=== PATIENT | male | born 1970 | race Caucasian/White ===

== ENCOUNTER 2021-06-16 08:13 | Emergency (ER) | payer OTHER, SELFPAY ==
--- NOTE | 2021-06-16 08:18 | ED.SKABFB ---
HPI - Skin/Abscess/Foreign Bdy General Chief complaint: Skin/Abscess/Foreign Body Stated complaint: poison jay jay Time Seen by Provider: 06/16/21 08:18 Source: patient, family and RN notes reviewed History of Present Illness HPI narrative: Patient is a 50-year-old male who presents the urgent care with his with complaints of a rash to the abdomen and back. Patient states is been there for approximately 1 week and he has been using calamine spray to the area. Patient states he has anaphylaxis to Benadryl and therefore has not taken any antihistamines. Patient did help his do yard work last week and she got over her poison jay jay fairly quickly. Patient states that the area is painful. No other acute complaints. No acute distress noted. Patient aware of the plan of care. Some parts of this dictation were generated by voice recognition software and may contain typographical and/or grammatical inaccuracies. Related Data Home Medications Medication Instructions Recorded Confirmed albuterol sulfate 2 puff INHALATION QID PRN 06/16/21 06/16/21 montelukast 10 mg PO DAILY 06/16/21 06/16/21 Allergies Allergy/AdvReac Type Severity Reaction Status Date / Time aspirin Allergy Severe Anaphylaxis Verified 06/16/21 08:26 diphenhydramine Allergy Severe Anaphylaxis Verified 06/16/21 08:26 pseudoephedrine Allergy Severe Anaphylaxis Verified 06/16/21 08:26 Review of Systems Review of Systems: CONSTITUTIONAL: Denies fever, chills, or sweats. EYES: Denies visual changes, redness, or discharge. ENT: Denies rhinorrhea, congestion, sore throat, or otalgia. CARDIOVASCULAR: Denies chest pain, palpitations, or edema. RESPIRATORY: Denies cough or dyspnea. GASTROINTESTINAL: Denies abdominal pain, nausea, vomiting, or diarrhea. GENITOURINARY: Denies dysuria or hematuria. SKIN: Reports of a painful rash to the right abdomen and back MUSCULOSKELETAL: Denies back pain, joint pain, or myalgia. NEUROLOGIC: Denies headache, numbness, or weakness. All other systems reviewed are negative, except as documented in HPI. [facility] Family History Family History (Updated 07/06/14 @ 07:13 by DOCTOR UNKNOWN) Father Malignant neoplasm of prostate Family history of lung cancer Sibling Hypertension Social History Social History Smoking status: Never smoker Alcohol intake: current Comments At the time of my signature, I reviewed and agree with the nursing past medical, surgical, social, and family history. There is no relevant family history pertinent to the patient complaint. Exam Narrative: GENERAL: This is a well-nourished, well-developed patient, in no apparent distress. HEAD: normocephalic, atraumatic. EYES: PERRL. Sclera clear/white. Vision is grossly intact. EARS: External ears normal NOSE: External nose normal with no obvious nasal discharge, nares without redness, no rhinorrhea. THROAT: Mucous membranes moist NECK: Neck supple CARDIOVASCULAR: Regular rate and rhythm without murmurs, gallops, or rubs. RESPIRATORY: Clear to auscultation. Breath sounds equal bilaterally. No wheezes, rales, or rhonchi. SKIN: Diffuse right abdomen extending to the right thoracic, stopping in the midline, vesicular dermatitis (shingles) NEURO: awake, alert, and oriented to person, place and time. There were no obvious focal neurologic abnormalities. EXTREMITIES: No clubbing, cyanosis, or edema. Course Vital Signs Vital signs: Vital Signs Temperature 98.5 F 06/16/21 08:25 Pulse Rate 83 06/16/21 08:25 Respiratory Rate 18 06/16/21 08:25 Blood Pressure 186/82 H 06/16/21 08:25 Pulse Oximetry 100 06/16/21 08:25 Temperature 98.5 F 06/16/21 08:25 Pulse Rate 83 06/16/21 08:25 Respiratory Rate 18 06/16/21 08:25 Blood Pressure 186/82 H 06/16/21 08:25 Pulse Oximetry 100 06/16/21 08:25 Reviewed-patient is informed that they may have pre-hypertension or hypertension based on a blood pressure reading in the department. I recommen
[2021-06-16 08:25] VITALS: BP 186/82; PULSE 83; RESP 18; TEMP 36.9; O2SAT 100
== END 2021-06-16 08:36 | disposition home or self-care (01) ==
PROVIDERS: Emergency Provider Nurse Practitioner Family
DX: B02.9 Zoster without complications (principal); J45.909 Unspecified asthma, uncomplicated
CPT/HCPCS: 99203; G0463

== ENCOUNTER 2021-12-29 09:13 | Emergency (ER) | payer OTHER, SELFPAY ==
[2021-12-29 09:28] VITALS: BP 238/134; PULSE 92; RESP 16; TEMP 37.3; O2SAT 99
--- NOTE | 2021-12-29 09:38 | ED.EAR ---
HPI - Ear Problem General Chief complaint: Ear Stated complaint: ear inf Source: patient History of Present Illness HPI Narrative: PATIENT PRESENTS WITH RIGHT EAR PAIN. NO DRAINAGE FROM EAR. PATIENT ALSO REQUESTS A REFILL ON ALBUTERAL INHALER AND SINGULAIR. MD Complaint: ear pain Related Data Home Medications Medication Instructions Recorded Confirmed albuterol sulfate 2 puff INHALATION QID PRN 06/16/21 12/29/21 montelukast 10 mg PO DAILY 06/16/21 12/29/21 Allergies Allergy/AdvReac Type Severity Reaction Status Date / Time aspirin Allergy Severe Anaphylaxis Verified 12/29/21 09:40 diphenhydramine Allergy Severe Anaphylaxis Verified 12/29/21 09:40 pseudoephedrine Allergy Severe Anaphylaxis Verified 12/29/21 09:40 Review of Systems Review of Systems: CONSTITUTIONAL: Denies fever, chills, or sweats. EYES: Denies visual changes, redness, or discharge. ENT: Denies rhinorrhea, congestion, sore throat, or otalgia. CARDIOVASCULAR: Denies chest pain, palpitations, or edema. RESPIRATORY: Denies cough or dyspnea. GASTROINTESTINAL: Denies abdominal pain, nausea, vomiting, or diarrhea. GENITOURINARY: Denies dysuria or hematuria. SKIN: Denies rash or itching. MUSCULOSKELETAL: Denies back pain, joint pain, or myalgia. NEUROLOGIC: Denies headache, numbness, or weakness. PSYCHIATRIC: Denies anxiety or depression. [facility] Family History Family History (Updated 07/06/14 @ 07:13 by DOCTOR UNKNOWN) Father Malignant neoplasm of prostate Family history of lung cancer Sibling Hypertension Social History Social History Smoking status: Never smoker Alcohol intake: current Comments At time of signature, agree with nursing past medical, surgical, social and family history. There is no relevant family history pertinent to the presenting complaint Exam Narrative: GENERAL: Well-appearing, well-nourished, and in no acute distress. HEAD: Normocephalic, atraumatic. EYES: PERRLA and EOMI. ENT: Nares clear, no rhinorrhea or epistaxis. Mucous membranes moist. Right ear TM intact left ear mild amount of cerumen in canal pain with movement NECK: Supple. CHEST: Clear to auscultation. No respiratory distress. HEART: Regular rate and rhythm. No murmur heard. Normal peripheral pulses. ABDOMEN: Soft, nontender, nondistended, normal active bowel sounds. EXTREMITIES: Normal range of motion. No edema. SKIN: Warm, dry, no rash. NEURO: No focal deficits. Alert and oriented x3. Daniela Coma Scale Eye Opening: Spontaneous 4 [place] Coma Scale Motor: Obeys Commands 6 [place] Coma Scale Verbal: Oriented 5 [place] Coma Scale Total 15 HENMT: Ears: external ear abnormal (RIGHT) auricular tenderness and pain with movement of external ear Course Course Level of Care: Express Care Visit Vital Signs Vital signs: Vital Signs Temperature 37.3 C 12/29/21 09:28 Pulse Rate 92 12/29/21 09:28 Respiratory Rate 16 12/29/21 09:28 Blood Pressure 238/134 H 12/29/21 09:28 Pulse Oximetry 99 12/29/21 09:28 Temperature 37.3 C 12/29/21 09:28 Pulse Rate 92 12/29/21 09:28 Respiratory Rate 16 12/29/21 09:28 Blood Pressure 238/134 H 12/29/21 09:28 Pulse Oximetry 99 12/29/21 09:28 Addressed elevated BP today. Today's blood pressure higher than recommended range. Discussed importance of follow -up with PCP and possible terminal supervisor effects/cardiovascular events related to HTN. Currently patient denies headache, dizziness, vision changes, CP or shortness of breath. Patient states he has whitecoat syndrome and blood pressure is elevated when he is at a physician's office. Discussed elevated blood pressure with patient states that it is elevated like this at each doctor visit. Patient states he was on blood pressure medication sometime ago but it was discontinued because his blood pressure returned to normal limits. Discussed red flags and when to go to ER. Discussed with patient need to monitor blood pressure follow low sodium diet
[2021-12-29 10:05] VITALS: BP 231/130; PULSE 91
== END 2021-12-29 10:05 | disposition home or self-care (01) ==
PROVIDERS: Emergency Provider Nurse Practitioner Family
DX: H60.91 Unspecified otitis externa, right ear (principal); H61.22 Impacted cerumen, left ear; J45.909 Unspecified asthma, uncomplicated
CPT/HCPCS: 99213; G0463

== ENCOUNTER 2023-08-24 09:51 | Outpatient (CLI) | payer OTHER, SELFPAY ==
[2023-08-24 19:13] LABS: Basophils Absolute Auto 0.1 K/mm3 (0.0-0.1); Basophils Percent Auto 0.8 % (0.2-1.2); Eosinophils Absolute Auto 0.3 K/mm3 (0-0.3); Eosinophils Percent Auto 4.7 % (0-4.4); Hematocrit 52.7 % (42.0-52.0); Hemoglobin 17.7 g/dL (14.0-18.0); Immature Granulocyte Absolute 0.03 K/mm3 (0.00-0.031); Immature Granulocyte Percent A 0.5 % (0-0.5); Lymphocytes Absolute Auto 1.18 K/mm3 (0.9-3.2); Lymphocytes Percent Auto 19.2 % (18.3-44.2); Mean Corpuscular HGB Conc 33.6 g/dl (32-36); Mean Corpuscular Hemoglobin 31.9 pg (26-34); Mean Platelet Volume 11.7 fl (7.4-10.4); Monocytes Absolute Auto 0.5 K/mm3 (0.1-0.6); Monocytes Percent Auto 8.3 % (2.6-8.5); Neutrophils Absolute Auto 4.1 K/mm3 (1.3-6.7); Neutrophils Percent Auto 66.5 % (45.5-73.1); Platelet Count Result 236 k/mm3 (150-375); Red Blood Count 5.55 M/mm3 (4.6-6.20); Red Cell Distribution Width 13.8 % (11.5-14.5); White Blood Count 6.1 K/mm3 (4.5-10.0)
[2023-08-24 20:02] LABS: Alanine Aminotransferase 47 U/L (6-50); Albumin Level 4.4 g/dL (3.5-5.1); Alkaline Phosphatase 46 U/L (38-126); Anion Gap 9 mmol/L (8-16); Aspartate Amino Transferase 73 U/L (17-59); Blood Urea Nitrogen 28 mg/dL (9-20); Calcium 9.8 mg/dL (8.4-10.2); Carbon Dioxide 33 mmol/L (22-30); Chloride 96 mmol/L (98-107); Cholesterol 304 mg/dL (0-200); Estimated Glomerular Filt Rate 30; Glucose 91 mg/dL (65-110); HDL Direct 35 mg/dL; Potassium 3.3 mmol/L (3.4-5.0); Sodium 138 mmol/L (137-145); Triglycerides 120 mg/dL (<150)
[2023-08-24 20:11] LABS: Thyroid Stimulating Hormone Reflex 0.366 uIU/mL (0.465-4.68)
[2023-08-24 20:13] LABS: LDL Cholesterol Direct 215 mg/dL
[2023-08-24 21:17] LABS: Free T4 Free Thyroxine Reflex 0.96 ng/dL (0.78-2.19)
[2023-08-24 22:06] LABS: Total Triiodothyronine (T3) 1.29 NG/ML (0.97-1.69)
[2023-08-26 17:59] LABS: PSA, Free 0.93 ng/mL; PSA, Total 3.9 ng/mL (<=4.0); Percent Free Prostate Spec Ag 24 % (>25)
[2023-08-27 12:53] LABS: Testosterone Total 336 ng/dL (250-1100)
== END 2023-08-24 09:52 | disposition home or self-care (01) ==
LOC: ANHBWCLAB 09:53
PROVIDERS: PCP Nurse Practitioner Adult Health; Visit Provider Nurse Practitioner Adult Health
DX: Z12.5 Encounter for screening for malignant neoplasm of prostate (principal); F55.3 Abuse of steroids or hormones; I10 Essential (primary) hypertension
CPT/HCPCS: 36415; 80053; 80061; 84153; 84154; 84402; 84403; 84439; 84443; 84480; 85025

== ENCOUNTER 2025-02-27 07:43 | Outpatient (CLI) | payer OTHER, SELFPAY ==
[2025-02-27 19:35] LABS: Basophils Absolute Auto 0.1 K/mm3 (0.0-0.1); Basophils Percent Auto 0.9 % (0.2-1.2); Eosinophils Absolute Auto 0.2 K/mm3 (0-0.3); Eosinophils Percent Auto 3.9 % (0-4.4); Hematocrit 55.2 % (42.0-52.0); Hemoglobin 18.4 g/dL (14.0-18.0); Immature Granulocyte Absolute 0.04 K/mm3 (0.00-0.031); Immature Granulocyte Percent A 0.7 % (0-0.5); Lymphocytes Percent Auto 21.2 % (18.3-44.2); Mean Corpuscular HGB Conc 33.3 g/dl (32-36); Mean Corpuscular Hemoglobin 31.2 pg (26-34); Mean Corpuscular Volume 93.6 fl (80-100); Mean Platelet Volume 11.9 fl (7.4-10.4); Monocytes Absolute Auto 0.5 K/mm3 (0.1-0.6); Monocytes Percent Auto 9.2 % (2.6-8.5); Neutrophils Absolute Auto 3.6 K/mm3 (1.3-6.7); Neutrophils Percent Auto 64.1 % (45.5-73.1); Platelet Count Result 190 k/mm3 (150-375); Red Cell Distribution Width 14.6 % (11.5-14.5); White Blood Count 5.7 K/mm3 (4.5-10.0)
[2025-02-27 19:37] LABS: Alanine Aminotransferase 57 U/L (6-50); Albumin Level 4.3 g/dL (3.5-5.1); Alkaline Phosphatase 57 U/L (38-126); Anion Gap 9 mmol/L (4-12); Aspartate Amino Transferase 79 U/L (17-59); Bilirubin,Total 0.9 mg/dL (0.2-1.3); Blood Urea Nitrogen 27 mg/dL (9-20); Calcium 9.1 mg/dL (8.4-10.2); Carbon Dioxide 32 mmol/L (22-30); Chloride 97 mmol/L (98-107); Cholesterol 283 mg/dL (0-200); Estimated Glomerular Filt Rate 33; Glucose 88 mg/dL (65-110); HDL Direct 44 mg/dL; Potassium 3.4 mmol/L (3.4-5.0); Sodium 138 mmol/L (137-145); Triglycerides 136 mg/dL (<150)
[2025-02-27 19:49] LABS: LDL Cholesterol Direct 179 mg/dL
[2025-02-27 20:07] LABS: Prostate Specific Antigen 6.9 ng/mL (< OR = 4.0)
[2025-02-27 20:18] LABS: Thyroid Stimulating Hormone Reflex 0.906 uIU/mL (0.465-4.68)
[2025-03-01 15:03] LABS: Cystatin C 1.54 mg/L (0.52-1.23); eGFR 45 (> OR = 60)
== END 2025-02-27 07:44 | disposition home or self-care (01) ==
PROVIDERS: PCP Nurse Practitioner Adult Health; Visit Provider Nurse Practitioner Adult Health
DX: E78.5 Hyperlipidemia, unspecified (principal); I10 Essential (primary) hypertension; Z12.5 Encounter for screening for malignant neoplasm of prostate
CPT/HCPCS: 36415; 80053; 80061; 82610; 84153; 84402; 84403; 84443; 85025; G0103

== ENCOUNTER 2025-05-18 10:43 | Outpatient (CLI) | payer OTHER, SELFPAY ==
--- OUTSIDE RECORDS SUMMARY | 2025-05-18 10:47 | XMS_ITS | Encounter Summary ---
Author Organization [facility] Address [address] [facility] [place] [address] Phone Care Team Providers Care Blow Machine Tender Starch Spraying Name Role Phone Santiago Goodrich MD Unavailable [phone] Namrata Alvarez APRN, IT SOFTWARE DEVELOPER Primary Care P bijal Reason for Visit * Reason Comments Medication Refill Encounter Details Date Type Department Care Team (Late st Contact Info) Description 04/09/2021 Refill [facility] - [facility] Medicine - [place] [address] [place] [id number] Abby Velásquez Cecilia, PAC [address] [place] [address] Medication Refill Social History Tobacco Use Types Packs/Day Years Used Date Smoking Tobacco: Never Smokeless Tobacco: Never Alcohol Use Standard Drinks/Week Comments Yes 3 (1 standard drink = 0.6 oz pur e alcohol) AUDIT-C Answer Date Recorded Q1: How often do you have a drink containing alc ohol? 2-4 times a month 03/13/2020 Q2: How many drinks containi ng alcohol do you have on a typical day when you are drinking? 3 or 4 03/13/2020 Q3: How often do you have si x or more drinks on one occasion? Monthly 03/13/2020 PHQ-2 Answer Date Recorded Total Score - Questions 1-9 0 03/2020 Sexually Active Control Partners Comments Yes None Female Sex and Gender Information Value Date Recorded Sex Assigned at Not on file Legal Sex Male 7:26 PM CDT Gender Identity Not on file Sexual Orientation Not on file documented as of this encounter Miscellaneous Notes * Telephone Encounter - Leonie Ricardo RN - 04/09/2021 2:34 PM CDT Per nursing clinical judgement, provider to review and approve the medication(s) order(s) if appropriate. Requested Prescriptions Pending Prescriptions Disp Refills montelukast (SINGULAIR) 10 MG Tablet [Pharmacy Med Name: MONTELUKAST 10MG TABLETS] 90 Tablet 3 Sig: TAKE 1 TABLET BY MOUTH EVERY EVENING [facility] Pulmonology: Leukotriene Inhibitors Passed - 04/09/2021 5:35 AM Passed - Valid encounter within last 12 months Past Office Visits Recent Outpatient Visits 10 months ago Essential hypertension [facility] Namrata Alvarez APN, IT SOFTWARE DEVELOPER 11 months ago Mild intermittent asthma without complication [facility] Namrata Alvarez NETWORK INFRASTRUCTURE ARCHITECT, IT SOFTWARE DEVELOPER 1 year ago Mild intermittent asthma, unspecified whether complicated [facility] Abby Velásquez, PAC Upcoming Appointments DIE LAY OUT WORKER - Recent and Past Visits Recent Visits Date Type Provider Dept 06/18/20 Appointment Namrata Alvarez APN, IT SOFTWARE DEVELOPER [facility] 05/21/20 Telemedicine Namrata Alvarez APN, IT SOFTWARE DEVELOPER [facility] 03/13/20 Office Visit Abby Velásquez, PAC [facility] Showing recent visits within past 460 days with a meds authorizing provider and meeting all other requirements Future Appointments No visits were found meeting these conditions. Showing future appointments within next 90 days with a meds authorizing provider and meeting all other requirements * Telephone Encounter - Oneil Velasco CMA - 04/09/2021 9:52 AM CDT Not a GI medication, forwarded to primary documented in this encounter Plan of Treatment Not on file documented as of this encounter Visit Diagnoses Diagnosis Mild intermittent asthma, unspecified whether complicated documented in this encounter Additional Health Concerns Assessment Noted Time PHQ-9 Depression Total Score: 0 03/13/20 1:00 PM CDT documented as of this encounter Care Teams Blow Machine Tender Starch Spraying Relationship Specialty Start Date End Date Namrata Alvarez APRN, IT SOFTWARE DEVELOPER [address] [place] [address] PCP - General Advanced Practice Nurse 05/18/20 4 Santiago Goodrich MD [address] [place] [address] Orthopaedic Surgery 03/13/20 documented as of this encounter
--- OUTSIDE RECORDS SUMMARY | 2025-05-18 10:47 | XMS_ITS | Clinical Summary ---
Author Organization [facility] Address [address] [place] [address] Phone Care Team Providers Care Electric Wheelchair Repairer Name Role Phone Santiago Goodrich MD Unavailable [phone] Allergies Active Allergy Reactions Criticality Noted Date Comments Aspirin Anaphylaxis 03/13/2020 Diphenhydramine Anaphylaxis 02/14/2020 Medications albuterol 108 (90 Base) MCG/ACT Aerosol SolutionIndicatio ns:Mild intermittent asthma, unspecified whether complicated take 2 Puffs by inhalation every 4 hours as needed for Wheezing or Cough. 8.5 g 0 Active fluticasone (FLOVENT HFA) 110 MCG/ACT AerosolIndication s:Mild intermittent asthma, unspecified whether complicated take 2 Puffs by inhalation 2 times daily. 3 Inhaler 3 0 Active valsartan (DIOVAN) 160 MG TabletIndications :Essential hypertension Take 1 Tab by mouth nightly. 90 Tab 0 Active hydroCHLOROthiazi de 12.5 MG TabletIndications :Essential hypertension TAKE 1 TABLET BY MOUTH DAILY 90 Tab 1 Active montelukast (SINGULAIR) 10 MG TabletIndications :Mild intermittent asthma, unspecified whether complicated TAKE 1 TABLET BY MOUTH EVERY EVENING 90 Tablet 3 1 Active Active Problems Problem Noted Date Diagnosed Date Mild intermittent asthma 03/13/2020 BMI 32.0-32.9,adult 03/13/2020 Multiple allergies 03/13/2020 Hypertension 09/01/2013 Overview (04/24/2020): Hypertension Family History Medical History Relation Name Comments No Known Problems Brother Cancer Father Macular Degeneration Mother Osteoporosis Mother Relation Name Status Comments Brother Alive Father Mother Alive Social History Tobacco Use Types Packs/Day Years Used Date Smoking Tobacco: Never Smokeless Tobacco: Never Tobacco Cessation:Counseling Given: Yes Alcohol Use Standard Drinks/Week Comments Yes 3 [...] on file Sexual Orientation Not on file Last Filed Vital Signs Vital Sign Reading Time Taken Comments Blood Pressure 170/118 04/24/2020 1:27 PM CDT Pulse 79 04/24/2020 1:27 PM CDT Temperature 36.8 C (98.3 F) 04/24/2020 1:27 PM CDT Respiratory Rate 20 04/24/2020 1:27 PM CDT Oxygen Saturation 98% 04/24/2020 1:27 PM CDT Inhaled Oxygen Concentration - - Weight 105.1 kg (231 lb 9.6 oz) 04/24/2020 1:27 PM CDT Height 176.5 cm (5' 9.5) 04/24/2020 1:27 PM CDT Body Mass Index 33.71 04/24/2020 1:27 PM CDT Plan of Treatment Health Maintenance Due Date Last Done Comments Hepatitis C Virus (HCV) Screening 1969 TdaP Immunization 1969 Hepatitis B Immunization (1 of 3 - 19+ 3-dose series) 1988 Pneumococcal Immunization (5 0+ years) (1 of 2 - PCV) 1988 Cologuard 2014 Colonoscopy 2014 Colorectal Cancer Screening 2014 Immunochemical Fecal Occult Blood 2014 Zoster Immunization (1 of 2) 2019 SARS-COV-2 Immunization ( season) 2024 Influenza Immunization (#1) 2025 Respiratory Syncytial Virus (RSV) Immunization (Adult) (1 - 1-dose 75+ series) 2044 Human Papillomavirus (HPV) Immunization Aged Out No longer eligible b ased on patient's age to complete this topic Meningococcal Immunization (ACWY) Aged Out No longer eligible based on patient's age to complete this topic Rotavirus Immunization Aged Out No lo nger eligible based on patient's age to complete this topic Insurance [facility] Care Teams Electric Wheelchair Repairer Relationship Specialty Start Date End Date Santiago Goodrich MD [address] [place] [address] Orthopaedic Surgery 03/13/20
[2025-05-18 11:51] LABS: Albumin Level 4.3 g/dL (3.5-5.1); Anion Gap 8 mmol/L (4-12); Blood Urea Nitrogen 36 mg/dL (9-20); Calcium 9.6 mg/dL (8.4-10.2); Carbon Dioxide 29 mmol/L (22-30); Chloride 99 mmol/L (98-107); Estimated Glomerular Filt Rate 34; Glucose 94 mg/dL (65-110); Potassium 3.6 mmol/L (3.4-5.0); Sodium 136 mmol/L (137-145)
[2025-05-18 12:13] LABS: Total Protein Urine Random 12 mg/dL; Ur Ttl Prot Creatinine Ratio 0.25 mg/mg (0-0.20)
[2025-05-19 15:09] LABS: Albumin 3.5 g/dL (2.9-4.4); Alpha-1-Globulin 0.2 g/dL (0.0-0.4); Alpha-2-Globulin 0.7 g/dL (0.4-1.0); Gamma Globulin 1.4 g/dL (0.4-1.8)
[2025-05-19 18:08] LABS: ANA by IFA Rfx Titer/Pattern Negative (.)
== END 2025-05-18 10:44 | disposition home or self-care (01) ==
LOC: ANHLAB 10:44
PROVIDERS: PCP Nurse Practitioner Adult Health; Visit Provider Internal Medicine Nephrology
DX: I12.9 Hypertensive chronic kidney disease with stage 1 through stage 4 chronic kidney disease, or unspecified chronic kidney disease (principal); N18.32 Chronic kidney disease, stage 3b
CPT/HCPCS: 36415; 80069; 82570; 84156; 84165; 86037; 86038; 86160; 86225

== ENCOUNTER 2025-05-18 11:25 | Outpatient (CLI) | payer OTHER, SELFPAY ==
--- NOTE | ~2025-05-18 | US_ITS ---
EXAM: RENAL ULTRASOUND HISTORY: N18.32 - Chronic kidney disease, stage 3b COMPARISON: None FINDINGS: RIGHT KIDNEY: 13.0 x 7.1 x 7.4 cm. A lobular contour is identified within the right kidney with asymmetric echogenicity of the renal cor librado. The remainder of the renal parenchyma is only minimally increased in echogenicity and otherwise unrem arkable. No hydronephrosis or renal calculi. LEFT KIDNEY: 13.1 x 6.4 x 6.7 cm No hydronephrosis or renal calculi. Heterogeneity within the parenchyma of the left kidney is identified. The remainder of the parenchyma of the left kidney is only minimally increased in echogenicity. BLADDER: Minimally distended. Despite prolonged interrogation, neither ureteral jet was appreciated. Enlargement of the prostate gland with mass effect on the base of the bladder. IMPRESSION: No hydronephrosis or renal calculi. Findings suggesting medical renal disease. Heterogeneity within the parenchyma of the left kidney with lobular contour of the right kidney. Noncontrast enhanced CT examination of the abdomen and pelvis (given patient's poor renal function) i s recommended for further evaluation. Reviewed, dictated and finalized at location A. IMPRESSION: No hydronephrosis or renal calculi. Findings suggesting medical renal disease. Heterogeneity within the parenchyma of the left kidney with lobular contour of the right kidney. Noncontrast enhanced CT examination of the abdomen and pelvis (given patient's poor renal function) is recommended for further evaluation.
== END 2025-05-18 11:26 | disposition home or self-care (01) ==
LOC: MICIMG 11:26
PROVIDERS: PCP Nurse Practitioner Adult Health; Visit Provider Internal Medicine Nephrology
DX: R93.422 Abnormal radiologic findings on diagnostic imaging of left kidney (principal); I12.9 Hypertensive chronic kidney disease with stage 1 through stage 4 chronic kidney disease, or unspecified chronic kidney disease; N18.32 Chronic kidney disease, stage 3b
CPT/HCPCS: 76775

== ENCOUNTER 2025-08-30 08:05 | Outpatient (CLI) | payer OTHER, SELFPAY ==
--- OUTSIDE RECORDS SUMMARY | 2025-08-30 08:19 | XMS_ITS | Encounter Summary ---
Author Organization [facility] Address [address] [facility] [place] [address] Phone Care Team Providers Care Undergraduate Intern Name Role Phone Santiago Goodrich MD Unavailable [phone] Namrata Alvarez APRN, BALANCE WEIGHER Primary Care P bijal Reason for Visit * Reason Comments Medication Refill Encounter Details Date Type Department Care Team (Late st Contact Info) Description 04/09/2021 Refill [facility] - [facility] - [place] [address] [place] [phone] Abby Velásquez Cecilia, PAC [address] [place] [address] Medication Refill Social History Tobacco Use Types [...] Outpatient Visits 10 months ago Essential hypertension [facility] Namrata Alvarez APN, BALANCE WEIGHER 11 months ago Mild intermittent asthma without complication [facility] Namrata Alvarez 911 EMERGENCY DISPATCHER, BALANCE WEIGHER 1 year ago Mild intermittent asthma, unspecified whether complicated [facility] Abby Velásquez, PAC Upcoming Appointments BASKETBALL SCOUT - Recent and Past Visits Recent Visits Date Type Provider Dept 06/18/20 Appointment Namrata Alvarez APN, BALANCE WEIGHER [facility] 05/21/20 Telemedicine Namrata Alvarez APN, BALANCE WEIGHER [facility] 03/13/20 Office Visit Abby Velásquez, PAC [facility] Showing recent visits within past 460 days [...] documented as of this encounter Care Teams Undergraduate Intern Relationship Specialty Start Date End Date Namrata Alvarez APRN, BALANCE WEIGHER [address] [place] [address] PCP - General Advanced Practice Nurse 05/18/20 4 Santiago Goodrich MD [address] [place] [address] Orthopaedic Surgery 03/13/20 documented as of this encounter
--- OUTSIDE RECORDS SUMMARY | 2025-08-30 08:19 | XMS_ITS | Clinical Summary ---
Author Organization [facility] Address [address] [place] [address] Phone Care Team Providers Care Gm Name Role Phone Santiago Goodrich MD Unavailable [phone] Allergies Active Allergy Reactions Criticality Noted Date [...] 2014 Zoster Immunization (1 of 2) 2019 Influenza Immunization (#1) 2025 SARS-COV-2 Immunization ( season) 2025 Respiratory Syncytial Virus (RSV) Immunization (Adult) [...] patient's age to complete this topic Insurance [facility] Care Teams Gm Relationship Specialty Start Date End Date Santiago Goodrich MD [address] [place] [address] Orthopaedic Surgery 03/13/20
[2025-08-30 18:26] LABS: Hematocrit 54.3 % (42.0-52.0); Hemoglobin 18.1 g/dL (14.0-18.0); Mean Corpuscular HGB Conc 33.3 g/dl (32-36); Mean Corpuscular Hemoglobin 31.2 pg (26-34); Mean Corpuscular Volume 93.6 fl (80-100); Platelet Count Result 179 k/mm3 (150-375); Red Blood Count 5.80 M/mm3 (4.6-6.20); White Blood Count 6.2 K/mm3 (4.5-10.0)
[2025-08-30 18:37] LABS: Albumin Level 4.4 g/dL (3.5-5.1); Anion Gap 8 mmol/L (4-12); Blood Urea Nitrogen 39 mg/dL (9-20); Calcium 9.7 mg/dL (8.4-10.2); Carbon Dioxide 31 mmol/L (22-30); Chloride 95 mmol/L (98-107); Glucose 86 mg/dL (65-110); Potassium 4.4 mmol/L (3.4-5.0); Sodium 134 mmol/L (137-145)
[2025-08-30 18:41] LABS: Alanine Aminotransferase 33 U/L (6-50); Albumin Level 4.4 g/dL (3.5-5.1); Alkaline Phosphatase 51 U/L (38-126); Anion Gap 8 mmol/L (4-12); Aspartate Amino Transferase 69 U/L (17-59); Bilirubin,Total 1.0 mg/dL (0.2-1.3); Blood Urea Nitrogen 38 mg/dL (9-20); Calcium 9.7 mg/dL (8.4-10.2); Carbon Dioxide 30 mmol/L (22-30); Chloride 95 mmol/L (98-107); Glucose 87 mg/dL (65-110); HDL Direct 40 mg/dL; Potassium 4.3 mmol/L (3.4-5.0); Sodium 133 mmol/L (137-145); Total Protein 8.2 g/dL (6.3-8.2); Triglycerides 110 mg/dL (<150)
[2025-08-30 18:52] LABS: Estimated Glomerular Filt Rate 25; Parathyroid Intact < 14.5 pg/mL (14.5-75.2)
[2025-08-30 18:54] LABS: Estimated Glomerular Filt Rate 26
[2025-08-30 19:07] LABS: Total Protein Urine Random 9 mg/dL; Ur Ttl Prot Creatinine Ratio 0.14 mg/mg (0-0.20)
[2025-08-30 19:17] LABS: Prostate Specific Antigen 5.4 ng/mL (< OR = 4.0)
[2025-08-30 19:28] LABS: Cholesterol 375 mg/dL (0-200)
[2025-08-31 10:09] LABS: eGFR 55 (>59)
== END 2025-08-30 08:06 | disposition home or self-care (01) ==
LOC: ANHBWCLAB 08:08
PROVIDERS: PCP Nurse Practitioner Adult Health; Visit Provider Internal Medicine Nephrology
DX: I12.9 Hypertensive chronic kidney disease with stage 1 through stage 4 chronic kidney disease, or unspecified chronic kidney disease (principal); N18.32 Chronic kidney disease, stage 3b; N25.81 Secondary hyperparathyroidism of renal origin; E55.9 Vitamin D deficiency, unspecified; R97.20 Elevated prostate specific antigen [PSA]; Z12.5 Encounter for screening for malignant neoplasm of prostate
CPT/HCPCS: 36415; 80053; 80061; 80069; 82306; 82570; 82610; 83970; 84153; 84156; 85027